=== PATIENT | male | born 1945 | race Two or more races ===

== ENCOUNTER 2022-09-26 09:06 | Outpatient (CLI) | payer OTHER | END 2022-09-26 09:12 | disposition home or self-care (01) | LOC: RAD 09:06 | PROVIDERS: ATTEND Orthopaedic Surgery Orthopaedic Surgery of the Spine | DX: M43.26 Fusion of spine, lumbar region (principal); M43.27 Fusion of spine, lumbosacral region ==

== ENCOUNTER 2023-04-16 12:32 | Outpatient (CLI) | payer OTHER | END 2023-04-16 12:39 | disposition home or self-care (01) | LOC: RAD 12:32 | PROVIDERS: ATTEND Orthopaedic Surgery Orthopaedic Surgery of the Spine | DX: M43.26 Fusion of spine, lumbar region (principal); M43.27 Fusion of spine, lumbosacral region ==

== ENCOUNTER 2023-11-17 09:41 | Outpatient (CLI) | payer OTHER | END 2023-11-17 09:45 | disposition home or self-care (01) | LOC: RAD 09:41 | PROVIDERS: ATTEND Orthopaedic Surgery Orthopaedic Surgery of the Spine | DX: M43.26 Fusion of spine, lumbar region (principal); M43.27 Fusion of spine, lumbosacral region ==